=== PATIENT | female | born 1995 | race American Indian/Alaskan Native ===

== ENCOUNTER 2016-10-09 08:38 | Emergency (ER) | payer SELFPAY ==
[2016-10-09 08:53] VITALS: BP 120/75
[2016-10-09 09:19] LABS: Bilirubin,Urine NEG (Negative); Blood,Urine NEG (Negative); Ketones,Urine NEG (Negative); Leukocyte Esterase,Urine NEG (Negative); Mucus,Urine FEW /HPF; Nitrite,Urine NEG (Negative); Protein,Urine <15 mg/dL mg/dL (Negative); Urobilinogen,Urine < 2.0 mg/dL (<2.0)
[2016-10-09 09:42] LABS: Basophils % (Auto) 0.5 % (0.0-1.8); Eosinophils % (Auto) 4.6 % (0.0-4.3); Hematocrit 29.4 % (30.3-42.9); Hemoglobin 8.9 gm/dl (10.1-14.3); Mean Corpuscular HGB Conc 30 % (30-34); Platelet Count 275 K/mm3 (140-440); Red Cell Distribution Width 19.8 % (13.2-15.2); White Blood Count 7.5 K/mm3 (4.5-11.0)
[2016-10-09 09:43] LABS: Mean Corpuscular Hemoglobin 21 pg (28-32); Mean Corpuscular Volume 68 fl (79-97)
[2016-10-09 09:52] LABS: Alanine Aminotransferase 11 units/L (7-56); Albumin 4.2 g/dL (3.9-5); Albumin/Globulin Ratio 1.2 %; Alkaline Phosphatase 49 units/L (35-129); Anion Gap 18 mmol/L; BUN/Creatinine Ratio 17.14; Blood Urea Nitrogen 12 mg/dL (7-17); Calcium 9.3 mg/dL (8.4-10.2); Carbon Dioxide 22 mmol/L (22-30); Chloride 102.1 mmol/L (98-107); Glucose 104 mg/dL (65-100); Lipase 22 units/L (13-60); Potassium 4.1 mmol/L (3.6-5.0); Sodium 138 mmol/L (137-145); Total Protein 7.8 g/dL (6.3-8.2)
== END 2016-10-09 20:00 | disposition left against medical advice (07) ==
LOC: ED 08:38
DX: Z53.21 Procedure and treatment not carried out due to patient leaving prior to being seen by health care provider (principal)
CPT/HCPCS: 36415; 80053; 81001; 81025; 83690; 85025

== ENCOUNTER 2017-04-05 02:45 | Outpatient (CLI) | payer MEDICAID ==
[2017-04-05 02:59] VITALS: BP 119/71
[2017-04-05] MEDS ORDERED: TYLENOL ONE (05:08)
[2017-04-05] MEDS ORDERED: TYLENOL PO ONE (05:10)
== END 2017-04-05 05:15 | disposition home or self-care (01) ==
LOC: TRG 02:45
PROVIDERS: ATTEND Obstetrics & Gynecology
DX: O26.892 Other specified pregnancy related conditions, second trimester (principal); M54.9 Dorsalgia, unspecified; Z3A.23 23 weeks gestation of pregnancy
CPT/HCPCS: 59025

== ENCOUNTER 2017-05-26 12:38 | Outpatient (CLI) | payer MEDICAID ==
[2017-05-26 13:00] VITALS: BP 122/64
[2017-05-26] MEDS ORDERED: LACTATED RINGERS 1,000 ML ONE (15:00)
[2017-05-26] MEDS ORDERED: BRETHINE ONE (16:25)
[2017-05-26] MEDS ORDERED: LACTATED RINGERS 500 ML IV ONE (17:00)
[2017-05-26] MEDS ORDERED: BRETHINE IVP ONE (17:00)
[2017-05-26] MEDS ORDERED: CELESTONE SOLUSPAN IM ONE (18:00)
--- NOTE | 2017-05-26 18:41 | Ultrasound Report ---
FINAL REPORT EXAM: US OB > = 14 WEEKS FETUS HISTORY: FFN POSITIVE, FOR LENGTH AND EFW, AND PRESENTATION TECHNIQUE: Standard full obstetrical ultrasound PRIORS: None. FINDINGS: LMP: 10/09/2016 clinical Age: 32 w 5 d US Age (average) = 31 w 3D EFW (BPD,HC,AC,FL) = 1664g +/ - 246g (3lbs. 11oz. +/- 9oz.) LMP EDC 07/16/2017 US EDC 07/25/2017 CI 78.2 (range 74.0 To 83.0) HC/AC 1.14 (range 0.9 cm to 1.17) FL/BPD 77.7 (range 71.5 to 87.5) FL/HC 20.8 (range 16.9 to 23.5) FL/AC 23.8 (range 20.0 to 24.0) Age 2SD Mean W/d d mm BPD 7.9 cm corresponding to estimated age 30 weeks 5 days HC 29.4 cm corresponding to estimated age 32 weeks 3 days AC 25.8 cm corresponding to estimated age 29 weeks 6 days FL 6.1 cm corresponding to estimated age 31 weeks 6 days Presentation: Breech Activity: Monitored Situs: Normal Placental location: Posterior Placental grade: II Cardiac motion: 143 BPM using M-mode doppler Heart (4 CH) : Present Umbilical cord: 3 vessel Bladder: Present Kidneys: Present stomach: Present Diaphragm: Present Spine: Not well visualized due to lie brain and skull: Present with normal anatomy femurs: Present tibia/fibula: Present humerus: Present radius/ulna: Present Cord Insertion: Not visualized due to lie Amniotic Fluid Volume: Adequate LUPIS: 14.5 cm Cervical Length: 4.2 cm IMPRESSION: Single intrauterine viable with an approximate age of 31 weeks 3 days. spine and cord insertion are not well visualized due to lie.
[2017-05-26] MEDS ORDERED: BRETHINE SUB-Q ONE (19:42)
== END 2017-05-26 20:15 | disposition home or self-care (01) ==
LOC: TRG 12:38
PROVIDERS: ATTEND Obstetrics & Gynecology
DX: O32.1XX0 Maternal care for breech presentation, not applicable or unspecified (principal); O47.03 False labor before 37 completed weeks of gestation, third trimester; Z3A.31 31 weeks gestation of pregnancy
CPT/HCPCS: 36415; 59025; 76805; 82731; 87591; 96360; 96361; 96372; J0702; J3105; J7120

== ENCOUNTER 2017-05-27 17:56 | Outpatient (CLI) | payer MEDICAID ==
[2017-05-27] MEDS ORDERED: CELESTONE SOLUSPAN IM ONE (19:00)
== END 2017-05-27 18:21 | disposition home or self-care (01) ==
LOC: TRG 17:56
PROVIDERS: ATTEND Obstetrics & Gynecology
DX: O47.03 False labor before 37 completed weeks of gestation, third trimester (principal); Z3A.32 32 weeks gestation of pregnancy
CPT/HCPCS: 59025; 96372

== ENCOUNTER 2017-07-03 16:46 | Outpatient (CLI) | payer MEDICAID ==
[2017-07-03 17:47] VITALS: BP 118/62
--- NOTE | 2017-07-03 19:29 | Ultrasound Report ---
FINAL REPORT PROCEDURE: US OB BPP WO NON-STRESS TECHNIQUE: Sonographic evaluation for breathing, movement, tone, and amniotic fluid volume was performed. CPT 82999 HISTORY: WELL BEING, HX OF LOW LUPIS COMPARISON: No prior studies are available for comparison. FINDINGS: Amniotic fluid volume: Normal-score 2. At least one vertical pocket > 2 cm or more in vertical axis. breathing: Normal-score 2. movement: Normal-score 2. tone: Normal. Score: 8 of 8. IMPRESSION: Normal biophysical profile score.
--- NOTE | 2017-07-03 19:40 | Ultrasound Report ---
FINAL REPORT PROCEDURE: US OB LIMITED TECHNIQUE: Real-time limited sonographic examination was performed for evaluation of position, heartbeat, fluid volume for each fetus with image documentation (1 or more fetuses). CPT 86666 HISTORY: WELL BEING, HX OF LOW LUPIS COMPARISON: No prior studies are available for comparison. FINDINGS: FETUS IUP: Single living intrauterine . Position: Cephalic. Amniotic fluid volume: 14.0 centimeters Heart rate and rhythm: 151 BPM, Regular . anatomic survey: Not performed. MEASUREMENTS No biometric measurements were obtained. IMPRESSION: Amniotic fluid index measures 14.0 centimeters.
== END 2017-07-03 18:40 | disposition home or self-care (01) ==
LOC: TRG 16:46
PROVIDERS: ATTEND Obstetrics & Gynecology
DX: O47.1 False labor at or after 37 completed weeks of gestation (principal); Z3A.39 39 weeks gestation of pregnancy
CPT/HCPCS: 59025; 76815; 76819

== ENCOUNTER 2017-07-16 08:58 | Inpatient (IN) | payer MEDICAID ==
[2017-07-16] MEDS ORDERED: BRETHINE IVP PRN (10:00)
[2017-07-16] MEDS ORDERED: SUBLIMAZE IV PRN (10:00)
[2017-07-16] MEDS ORDERED: MINERAL OIL PO PRN (10:00)
[2017-07-16] MEDS ORDERED: BRETHINE SUB-Q PRN (10:00)
[2017-07-16] MEDS ORDERED: STADOL IV PRN (10:00)
[2017-07-16] MEDS ORDERED: PITOCin/NS 30 UNIT/500ML 30 UNITS/500 ML BAG IV SCH (10:00)
[2017-07-16] MEDS ORDERED: XYLOCAINE 2% INFILTRATI NR (10:00)
[2017-07-16] MEDS ORDERED: ePHEDrine SULFATE IV PRN ×2 (10:00→16:05)
[2017-07-16] MEDS ORDERED: PITOCin/NS 20 UNIT/1000ML DRIP 20 UNITS/1,000 ML BAG IV SCH ×2 (10:00→19:00)
[2017-07-16 10:48] LABS: Hematocrit 35.6 % (30.3-42.9); Hemoglobin 11.6 gm/dl (10.1-14.3); Mean Corpuscular HGB Conc 33 % (30-34); Mean Corpuscular Hemoglobin 28 pg (28-32); Mean Corpuscular Volume 85 fl (79-97); Platelet Count 202 K/mm3 (140-440); Red Blood Count 4.19 M/mm3 (3.65-5.03)
[2017-07-16 11:19] LABS: Red Cell Distribution Width 32.4 % (13.2-15.2)
[2017-07-16] MEDS: LACTATED RINGERS 1,000 ML IV SCH ×2 (12:24→16:41)
[2017-07-16] MEDS: PITOCin/NS 30 UNIT/500ML 30 UNITS/500 ML BAG IV SCH ×4 (12:24→16:40)
--- NOTE | 2017-07-16 14:21 | History and Physical Report ---
History of Present Illness Date of examination: 07/16/17 Date of admission: 07/16/17 09:00 History of present illness: 21 yo LMP EDC 07/16/18 @ 40 weeks gestation presented with reported SROM meconium fluid at 2300 last night. Arrived this am. First trimester entry into care. limited care 17-32 weeks gestation. 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 Receive 2 units of PRBC this . Seen by MFM for oligohydramnios. Past History Past Medical History: hematologic disorders Past Surgical History: no surgical history Social history: no significant social history - Obstetrical History Expected Date of Delivery: 07/16/17 Actual Gestation: 40 Week(s) 0 Day(s) : 3 Para: 2 Number of Living Children: 2 Medications and Allergies Allergies Allergy/AdvReac Type Severity Reaction Status Date / Time No Known Allergies Allergy Verified 08/31/15 16:59 Home Medications Medication Instructions Recorded Confirmed Last Taken Type Ferrous Sulfate [Feosol 325 MG tab] 1 tab PO BID 07/03/17 07/03/17 07/03/17 01: 40 History Pnv No.95/Ferrous Fum/Folic AC 1 tab PO DAILY 07/03/17 07/03/17 07/03/17 History [ Vitamins Tablet] Active Meds: Active Medications Butorphanol Tartrate (Stadol) 2 mg IV Q2H PRN PRN Reason: Pain , Severe (7-10) Ephedrine Sulfate (Ephedrine Sulfate) 10 mg IV Q2M PRN PRN Reason: Hypotension Fentanyl (Sublimaze) 100 mcg IV Q2H PRN PRN Reason: Labor Pain Lactated Ringer's (Lactated Ringers) 1,000 mls @ 125 mls/hr IV DIRECT VALENTÍN Last Admin: 07/16/17 12:24 Dose: 125 mls/hr Oxytocin/Sodium Chloride (Pitocin/Ns 20 Unit/1000ml Drip) 20 units in 1,000 mls @ 125 mls/hr IV DIRECT VALENTÍN Oxytocin/Sodium Chloride (Pitocin/Ns 30 Unit/500ml) 30 units in 500 mls @ 4 mls /hr IV TITR VALENTÍN; Protocol Last Admin: 07/16/17 14:16 Dose: 8 ml/hr, 8 mls/hr Oxytocin/Sodium Chloride (Pitocin/Ns 30 Unit/500ml) 30 units in 500 mls @ 1 mls /hr IV TITR VALENTÍN; Protocol Lidocaine (Xylocaine 2%) 20 ml INFILTRATI ONCE NR Stop: 07/17/17 09:59 Mineral Oil (Mineral Oil) 30 ml PO QHS PRN PRN Reason: Constipation Terbutaline Sulfate (Brethine) 0.25 mg SUB-Q ONCE PRN PRN Reason: Hyperstimulation/Hypertonicity Terbutaline Sulfate (Brethine) 0.25 mg IVP ONCE PRN PRN Reason: Hyperstimulation/Hypertonicity Review of Systems All systems: negative - Physical Exam Abdomen: Positive: normal appearance, soft Genitourinary (Female): Positive: normal external genitalia, normal perenium - Obstetrical FHR: category 2 Uterine Contraction Monitor Mode: External Cervical Dilatation: 3 Cervical Effacement Percentage: 40 station: 3 Uterine Contraction Pattern: Regular Uterine Tone Measurement Phase: Resting Results Result Diagrams: 07/16/17 10:30 Abnormal lab results 07/16/17 Range/Units 10:30 RDW 32.4 H (13.2-15.2) % All other labs normal. Assessment and Plan A: IUP at 40 weeks Prolonged ROM @ 1700 P: Active akash't Pitocin
[2017-07-16] MEDS ORDERED: POLYCILLIN/NS 2 GM/100 ML 2 GM/100 ML BAG IV SCH (16:00)
[2017-07-16] MEDS ORDERED: NARCAN 2 MG/2 ML IV PRN (16:05)
--- NOTE | 2017-07-16 16:05 | Anesthesia Consultation ---
Anesthesia Consult and Med Hx Date of service: 07/16/17 - Airway Anesthetic Teeth Evaluation: Good ROM Head & Neck: Adequate Mental/Hyoid Distance: Adequate Mallampati Class: Class II Intubation Access Assessment: Probably Good - Pre-Operative Health Status ASA Pre-Surgery Classification: ASA2 Proposed Anesthetic Plan: Epidural, Spinal - Pulmonary Hx Asthma: No COPD: No Hx Pneumonia: No - Cardiovascular System Hx Hypertension: No - Central Nervous System Hx Seizures: No Hx Psychiatric Problems: No - Endocrine Hx Renal Disease: No Hx End Stage Renal Disease: No Hx Liver Disease: No Hx Hypothyroidism: No Hx Hyperthyroidism: No - Hematic Hx Anemia: No Hx Sickle Cell Disease: No - Other Systems Hx Alcohol Use: No Hx Cancer: No
[2017-07-16] MEDS ORDERED: fentaNYL-BUPIV 2 MCG/ML-0.125% 200 MCG/100 ML BAG EPIDURAL SCH (17:00)
[2017-07-16] MEDS ORDERED: ZOFRAN ONE (17:35)
[2017-07-16] MEDS ORDERED: NORCO 5/325 PO PRN (18:16)
[2017-07-16] MEDS ORDERED: PHENERGAN PR PRN (18:16)
[2017-07-16] MEDS ORDERED: TORADOL IV PRN (18:16)
[2017-07-16] MEDS ORDERED: ZOFRAN IV PRN (18:16)
[2017-07-16] MEDS ORDERED: DULCOLAX PR PRN (18:16)
[2017-07-16] MEDS ORDERED: PHENERGAN PO PRN (18:16)
[2017-07-16] MEDS ORDERED: TUCKS PAD TP PRN (18:16)
[2017-07-16] MEDS ORDERED: MILK OF MAGNESIA PO PRN (18:16)
[2017-07-16] MEDS ORDERED: TYLENOL PO PRN (18:16)
[2017-07-16] MEDS ORDERED: LANSINOH TP PRN (18:16)
[2017-07-16] MEDS ORDERED: BENADRYL PO PRN (18:16)
--- NOTE | 2017-07-16 18:16 | Procedure Note ---
OB Delivery Note - Delivery Date of Delivery: 07/16/17 Surgeon: HECTOR GUEVARA Estimated blood loss: 200cc - Vaginal Delivery presentation: vertex Delivery position: OA Delivery induction: none Delivery augmentation: pitocin Delivery monitor: none Route of delivery: Delivery placenta: spontaneous Delivery cord: 3 umbilical vessels Episiotomy: none Delivery laceration: vaginal side wall Delivery repair: vicryl Anesthesia: epidural Delivery comments: Patient was noted to be c/c/+1 and commenced to pushing a viable male in OA presentation at 1756. The shoulders delivered easily. The baby placed on mother abd and nasopharynx and oropharynx. Apgars 8 and 9. weight 6 pounds 6 ounces. The placenta delivered spontaneously. A left labial tear repaired with 3 -0 vicryl. The patient tolerated procedure and laps correct x 2. EBL 200 cc - A at 1 minute: 8 at 5 minutes: 9 Infant Gender: Male
[2017-07-16] MEDS ORDERED: SODIUM CHLORIDE FLUSH SYRINGE 10 ML IV NR (19:00)
[2017-07-16] MEDS: PERCOCET 5/325 PO PRN (21:49)
[2017-07-16] MEDS: COLACE PO SCH (22:00)
[2017-07-17] MEDS: MOTRIN PO SCH ×3 (01:00→19:00)
[2017-07-17 06:46] LABS: Hematocrit 35.2 % (30.3-42.9); Hemoglobin 11.6 gm/dl (10.1-14.3)
[2017-07-17] MEDS: PERCOCET 5/325 PO PRN (07:32)
--- NOTE | 2017-07-17 08:15 | Progress Note ---
Assessment and Plan A/P PPD 1 s/p vss O+ no rhogam indicated 11.6-11.6 d/c home tomorrow Subjective - Subjective Date of service: 07/17/17 Principal diagnosis: Patient reports: appetite normal, voiding normally, pain well controlled, flatus , ambulating normally [place]: doing well Objective - Vital Signs Latest vital signs: Vital Signs Temp Pulse Resp BP Pulse Ox 07/17/17 04:50 98.0 F 74 20 120/57 98 07/17/17 00:58 98.0 F 89 20 112/50 93 07/16/17 21:11 99.2 F 95 H 18 112/56 07/16/17 19:48 97.0 F L 98 H 18 129/65 07/16/17 19:33 18 Intake and Output 07/16/17 07/17/17 07/17/17 23:59 07:59 15:59 Intake Total 546.417 240 Output Total 800 Balance -253.583 240 Intake: IV 546.417 Lactated Ringers 1,000 ml 535.417 @ 125 mls/hr IV DIRECT VALENTÍN Rx#:[id number] PITOCin/NS 30 UNIT/500ML 11 30 units In 500 ml @ 4 mls/hr IV TITR VALENTÍN Rx#: [id number] Oral 240 Output: Urine 800 Void 800 Other: Total, Intake Amount 240 Total, Output Amount 800 # Voids Void 2 # Bowel Movements 0 Estimated Blood Loss 200 - Exam Breasts: Present: normal Cardiovascular: Present: Regular rate, Normal S1 Lungs: Present: Clear to auscultation, Normal air movement Abdomen: Present: normal appearance, soft, normal bowel sounds. Absent: distention, tenderness Vulva: both: normal Uterus: Present: normal, firm, fundal height below umbilicus. Absent: bogginess , tenderness Extremities: Present: normal Deep Tendon Reflex Grade: Normal +2 - Labs Labs: Abnormal lab results 07/16/17 Range/Units 10:30 RDW 32.4 H (13.2-15.2) %
--- NOTE | 2017-07-17 08:16 | Discharge Summary ---
Providers - Providers Date of Admission: 07/16/17 09:00 Date of discharge: 07/18/17 Attending physician: HECTOR GUEVARA MD Primary care physician: HECTOR GUEVARA MD Hospitalization Reason for admission: active labor Delivery: Episiotomy: none Laceration: vaginal side wall Incision: normal Other procedures: none complications: none Discharge diagnosis: IUP at term delivered baby: male Condition at discharge: Good Disposition: [id number] TO HOME OR SELFCARE Plan - Provider Discharge Summary Activity: routine, no sex for 6 weeks, no strenuous exercise Diet: routine Instructions: routine Additional instructions: [] Smoking cessation referral if applicable(refer to patient education folder for contact #) [] Refer to [facility] Booklet Call your doctor immediately for: * Fever > 100.5 * Heavy vaginal bleeding ( >1 pad per hour) * Severe persistent headache * Shortness of breath * Reddened, hot, painful area to leg or breast * Drainage or odor from incision. * Keep incision clean and dry at all times and follow doctor's instructions regarding bathing/showering - Follow up plan Follow up: HECTOR GUEVARA MD [Primary Care Provider] - 08/13/17
[2017-07-17] MEDS: COLACE PO SCH ×2 (11:05→22:01)
[2017-07-17] MEDS: SENOKOT S PO SCH ×2 (11:05→22:01)
[2017-07-17] MEDS: PRENATAL VITAMIN PO SCH (11:06)
[2017-07-17] MEDS ORDERED: M-M-R II VACCINE SUB-Q ONE (18:16)
[2017-07-17] MEDS ORDERED: BOOSTRIX IM ONE (18:16)
[2017-07-18] MEDS: MOTRIN PO SCH ×3 (01:00→13:02)
[2017-07-18] MEDS: SENOKOT S PO SCH (08:58)
[2017-07-18] MEDS: COLACE PO SCH (08:59)
[2017-07-18] MEDS: PRENATAL VITAMIN PO SCH (08:59)
[2017-07-18 17:22] VITALS: BP 105/60
== END 2017-07-18 18:00 | disposition home or self-care (01) | DRG 775 ==
LOC: TRG 08:58 → LD 09:00 → TRG 09:20 → OB 20:40
PROVIDERS: ADMIT Obstetrics & Gynecology; ATTEND Obstetrics & Gynecology
PROC: 10E0XZZ Delivery of Products of Conception, External Approach (ICD-10-PCS; 2017-07-16)
PROC: 3E0R3BZ Introduction of Anesthetic Agent into Spinal Canal, Percutaneous Approach (ICD-10-PCS; 2017-07-16)
PROC: 00HU33Z Insertion of Infusion Device into Spinal Canal, Percutaneous Approach (ICD-10-PCS; 2017-07-16)
PROC: 0UQMXZZ Repair Vulva, External Approach (ICD-10-PCS; 2017-07-16)
PROC: 3E0234Z Introduction of Serum, Toxoid and Vaccine into Muscle, Percutaneous Approach (ICD-10-PCS; principal; 2017-07-17)
DX: O77.0 Labor and delivery complicated by meconium in amniotic fluid (principal); O70.0 First degree perineal laceration during delivery; Z3A.40 40 weeks gestation of pregnancy; Z37.0 Single live birth; Z23 Encounter for immunization; O99.02 Anemia complicating childbirth; D64.9 Anemia, unspecified
CPT/HCPCS: 36415; 85014; 85018; 85027; 86592; 86850; 86900; 86901; 99211; G0463; J0290; J1885; J2405; J2590; J3010; J7120

== ENCOUNTER 2017-07-22 13:39 | Emergency (ER) | payer MEDICAID ==
[2017-07-22 14:25] LABS: Alanine Aminotransferase 24 units/L (7-56); Albumin 3.5 g/dL (3.9-5); BUN/Creatinine Ratio 20; Blood Urea Nitrogen 10 mg/dL (7-17); Calcium 8.9 mg/dL (8.4-10.2); Hemolysis Index 4
[2017-07-22 14:31] LABS: Hematocrit 37.8 % (30.3-42.9); Hemoglobin 12.8 gm/dl (10.1-14.3); Mean Corpuscular HGB Conc 34 % (30-34); Mean Corpuscular Hemoglobin 29 pg (28-32); Mean Corpuscular Volume 86 fl (79-97); Platelet Count 230 K/mm3 (140-440); Red Blood Count 4.41 M/mm3 (3.65-5.03); Red Cell Distribution Width 30.4 % (13.2-15.2)
[2017-07-22 16:00] LABS: Basophils % (Manual) 0 % (0.0-1.8); Total Cells Counted 100
[2017-07-22 16:01] LABS: Anisocytosis 1+
[2017-07-22] MEDS ORDERED: NACL 0.9% 1000 ML 1,000 ML IV ONE (19:09)
--- NOTE | 2017-07-22 19:11 | Emergency Department Report ---
Blank Doc - Documentation Documentation: Patient presents with complaint of abdominal pain. Patient reports history of recent vaginal delivery on July 16. Patient reports that she was told in the past that she had abdominal hernia. Patient reports that over the last couple days she's had increasing abdominal pain with walking. Plan laboratory and radiological evaluation in the ER.
--- NOTE | 2017-07-22 21:30 | Emergency Department Report ---
ED Abdominal Pain HPI - General Chief Complaint: Abdominal Pain Stated Complaint: HERNIA PAIN Time Seen by Provider: 07/22/17 19:08 Source: patient Mode of arrival: Ambulatory Limitations: No Limitations - History of Present Illness Initial Comments: This is a 21 y.o. female that presents with abdominal pain from hernia. History of hernia prior to . She delivered on July 16 and notified INTERNET TECHNOLOGY MANAGER of hernia pain increased post delivery. The INTERNET TECHNOLOGY MANAGER was monitoring hernia during . Reports pain as 8/10 on pain scale and intermittent. Pain is worse with movement. It is a heavy sensation or pull. It is worse with walking or sitting for long periods of time. Denies frequency, urgency, dysuria, nausea/ vomiting, fever, or constipation. -: month(s) (1) Location: periumbilical Radiation: none Migration to: no migration Severity: severe Severity scale (0 -10): 8 Quality: aching, other (pulling sensation) Consistency: intermittent Improves With: nothing Worsens With: movement Associated Symptoms: denies other symptoms Treatments Prior to Arrival: NSAIDs - Related Data Home Medications Medication Instructions Recorded Confirmed Last Taken Ferrous Sulfate [Feosol 325 MG tab] 1 tab PO BID 07/03/17 07/16/17 07/03/17 01: 40 Pnv No.95/Ferrous Fum/Folic AC 1 tab PO DAILY 07/03/17 07/16/17 07/03/17 [ Vitamins Tablet] Previous Rx's Medication Instructions Recorded Last Taken Type Docusate Sodium [Colace] 100 mg PO BID PRN #30 capsule 07/17/17 Unknown Rx HYDROcodone/APAP 5-325 [Renick 1 each PO Q4HR PRN #30 tablet 07/17/17 Unknown Rx 5/325] Ibuprofen [Motrin] 600 mg PO Q8H PRN #30 tablet 07/17/17 Unknown Rx Allergies Allergy/AdvReac Type Severity Reaction Status Date / Time No Known Allergies Allergy Verified 08/31/15 16:59 ED Review of Systems ROS: Stated complaint: HERNIA PAIN Other details as noted in HPI Constitutional: denies: chills, fever Respiratory: denies: cough, shortness of breath, wheezing Cardiovascular: denies: chest pain, palpitations, edema, syncope Gastrointestinal: abdominal pain (umbilical pain, hernia). denies: nausea, diarrhea Genitourinary: denies: urgency, dysuria, discharge ED Past Medical Hx - Past Medical History Hx Hypertension: No Hx Congestive Heart Failure: No Hx Diabetes: No Hx Deep Vein Thrombosis: No Hx Liver Disease: No Hx Renal Disease: No Hx Sickle Cell Disease: No Hx Seizures: No Hx Asthma: No Hx COPD: No Hx Tuberculosis: No Hx HIV: No Additional medical history: Vaginal delivery x 2 - Surgical History Additional Surgical History: denies - Social History Smoking Status: Never Smoker Substance Use Type: None - Medications Home Medications: Home Medications Medication Instructions Recorded Confirmed Last Taken Type Ferrous Sulfate [Feosol 325 MG tab] 1 tab PO BID 07/03/17 07/16/17 07/03/17 01: 40 History Pnv No.95/Ferrous Fum/Folic AC 1 tab PO DAILY 07/03/17 07/16/17 07/03/17 History [ Vitamins Tablet] Docusate Sodium [Colace] 100 mg PO BID PRN #30 capsule 07/17/17 Unknown Rx HYDROcodone/APAP 5-325 [Renick 1 each PO Q4HR PRN #30 tablet 07/17/17 Unknown Rx 5/325] Ibuprofen [Motrin] 600 mg PO Q8H PRN #30 tablet 07/17/17 Unknown Rx ED Physical Exam - General Limitations: No Limitations General appearance: alert, in no apparent distress, obese - Respiratory Respiratory exam: Present: normal lung sounds bilaterally. Absent: respiratory distress - Cardiovascular Cardiovascular Exam: Present: regular rate, normal rhythm, normal heart sounds. Absent: systolic murmur, diastolic murmur, rubs, gallop - GI/Abdominal GI/Abdominal exam: Present: soft, tenderness, normal bowel sounds, hernia ( tender swelling of umbilicus). Absent: guarding, rebound, rigid ED Course Vital Signs 07/22/17 13:44 Temperature 98.7 F Pulse Rate 71 Respiratory 16 Rate Blood Pressure 135/58 O2 Sat by Pulse 97 Oximetry ED Medical Decision Making - Lab Data Result diagrams: 07/22/17 13:53 07/22/17 13:53 - Radiology Data Radiology results: report reviewed CT of abdomen pelvis: A prominent vascular structure in the right middle lobe is suspicious for an underlying vascular malformation. CT chest pre and post contrast is recommended for further evaluation. Hypertrophied uterus is most likely secondary to status. No obvious acute intra-abdominal or pelvic pathology. CT of Chest: A prominent pulmonary vein of right middle lobe is suspicious for an underlying vascular malformation. Postcontrast study is recommended. No acute pulmonary process.. - Medical Decision Making This is a 21 y.o. female with abdominal pain c/o hernia s/p vaginal deliver 07/16. Patient is stable and was examined by me. Vitals stable. Denies chest pain or SOB. CT of abdomen and CT of chest has been obtained and dictated by radiologist. A prominent pulmonary vein of right middle lobe is suspicious for an underlying vascular malformation. Postcontrast study is recommended. No acute pulmonary process. No acute intra-abdominal or pelvic pathology. Obtained CBC, CMP, HCG quant, d-dimer, and UA. Patient does not seem toxic or ill in appearance. No acute signs of distress noted. Patient informed of results. Consulted with Dr. Platt. Patient is asymptomatic and d-dimer elevation possibly from 6 days post . Referral to general surgery and pulmonology. Currently taking ibuprofen 600 mg, docusate, and norco 5-325 mg. Advised to continue using those for pain. Follow up with PCP in 2-[address] of chest in 3 months. Return to ER if SOB or chest pain. Critical care attestation.: If time is entered above; I have spent that time in minutes in the direct care of this critically ill patient, excluding procedure time. ED Disposition Clinical Impression: Umbilical hernia Qualifiers: Obstruction and gangrene presence: without obstruction or gangrene Qualified Code(s): K42.9 - Umbilical hernia without obstruction or gangrene Disposition: TO HOME OR SELFCARE Is pt being admited?: No Does the pt Need Aspirin: No Condition: Stable Instructions: Umbilical Hernia (ED), Abdominal Pain (ED) Additional Instructions: Continue to use ibuprofen or norco for pain. Follow up with general surgery for hernia management. Follow up with pulmonary for repeat CT of chest in 3 months. Follow up with [facility] in 2-3 days to establish Primary Care. Return to ER if shortness of breath/difficulty breathing, chest pain, or swelling to lower legs. Referrals: [facility] [Outside] - 3-5 Days DEMIAN MAGAÑA MD [Staff Physician] - 3-5 Days MONISHA HUFF MD [Staff Physician] - 3-5 Days Time of Disposition: 23:26 Print Language: TAMAZIGHT
--- NOTE | 2017-07-22 21:35 | Cat Scan Report ---
FINAL REPORT PROCEDURE: CT ABDOMEN PELVIS W CON TECHNIQUE: Computerized axial tomography of the abdomen and pelvis was performed after the IV injection of iodinated nonionic contrast. HISTORY: Pain COMPARISON: No prior studies are available for comparison. FINDINGS: Evaluation of the visualized lung bases demonstrate a prominent vascular structure in the inferior right middle lobe. Liver, spleen, and adrenal glands are within normal limits. Bilateral kidneys demonstrate uniform enhancement without hydronephrosis. Urinary bladder is partially filled with normal outlines. Aorta is of normal caliber. There is no free fluid or free air. Gallbladder is unremarkable. Small bowel loops are within normal limits. There is mild degree residual stool. Appendix is normal. Uterus is hypertrophied. Vertebral height is normal. IMPRESSION: A prominent vascular structure in the right middle lobe is suspicious for an underlying vascular malformation. CT chest pre and post contrast is recommended for further evaluation. Hypertrophied uterus is most likely secondary to status. No obvious acute intra-abdominal or pelvic pathology.
[2017-07-22 21:38] LABS: Bilirubin,Urine NEG (Negative); Blood,Urine LG (Negative); Color,Urine Yellow (Yellow); Mucus,Urine FEW /HPF; Protein,Urine <15 mg/dL mg/dL (Negative)
--- NOTE | 2017-07-22 22:22 | Cat Scan Report ---
FINAL REPORT PROCEDURE: CT CHEST WO CON TECHNIQUE: Computerized axial tomography of the chest was performed without contrast material. This study is performed without intravenous contrast and the sensitivity for pathology, including neoplasms, adenopathy, abscess, pulmonary embolism and aortic dissection, is reduced. HISTORY: f/u CT RML vascular structure COMPARISON: No prior studies are available for comparison. TECHNICAL QUALITY: Satisfactory. FINDINGS: Heart and pericardium: Mild cardiomegaly is noted. Thoracic aorta: Normal. Pulmonary vasculature: A prominent pulmonary vein is noted in the right middle lobe.. Lymph nodes: No enlarged thoracic lymph nodes. Lungs: There are no infiltrates or mass lesions.. Pleural space: No effusion, thickening, or pneumothorax. Musculoskeletal structures: No significant abnormality. Upper abdominal structures: No significant abnormality. IMPRESSION: A prominent pulmonary vein of right middle lobe is suspicious for an underlying vascular malformation. Postcontrast study is recommended. No acute pulmonary process..
[2017-07-22 23:45] VITALS: BP 123/67
== END 2017-07-22 23:44 | disposition home or self-care (01) ==
LOC: ED 13:39
DX: K42.9 Umbilical hernia without obstruction or gangrene (principal); R07.9 Chest pain, unspecified
CPT/HCPCS: 36415; 71250; 74177; 80053; 81001; 83690; 84702; 85007; 85025; 85379; 99284; J7030; Q9967

== ENCOUNTER 2017-09-07 23:23 | Emergency (ER) | payer MEDICAID ==
[2017-09-07 23:46] VITALS: BP 117/79
[2017-09-08 01:07] LABS: Hematocrit 39.5 % (30.3-42.9); Hemoglobin 13.2 gm/dl (10.1-14.3); Mean Corpuscular HGB Conc 34 % (30-34); Mean Corpuscular Hemoglobin 31 pg (28-32); Mean Corpuscular Volume 91 fl (79-97); Platelet Count 203 K/mm3 (140-440); Red Blood Count 4.34 M/mm3 (3.65-5.03); Red Cell Distribution Width 14.2 % (13.2-15.2)
[2017-09-08 01:17] LABS: Basophils % (Auto) 0.7 % (0.0-1.8); Eosinophils # (Auto) 0.1 K/mm3 (0.0-0.4); Eosinophils % (Auto) 1.9 % (0.0-4.3); Lymphocytes # (Auto) 1.3 K/mm3 (1.2-5.4); Lymphocytes % (Auto) 20.7 % (13.4-35.0); Monocytes # (Auto) 0.8 K/mm3 (0.0-0.8)
[2017-09-08 01:19] LABS: BUN/Creatinine Ratio 10; Blood Urea Nitrogen 9 mg/dL (7-17); Calcium 8.7 mg/dL (8.4-10.2); Hemolysis Index 9
[2017-09-08] MEDS ORDERED: TYLENOL PO ONE (01:36)
[2017-09-08] MEDS ORDERED: PEPCID PO ONE (01:36)
--- NOTE | 2017-09-08 02:11 | XRay Report ---
FINAL REPORT EXAM: XR CHEST 1V AP HISTORY: chest pain TECHNIQUE: A portable view of the chest was obtained. FINDINGS: The heart size is at the upper limits of normal. The lungs are clear. The lungs are not congested. Pleural fluid is not seen. The bones and soft tissues do not show any acute changes. IMPRESSION: No active chest disease.
[2017-09-08 02:30] LABS: Alanine Aminotransferase 13 units/L (7-56); Albumin 3.9 g/dL (3.9-5); Lipase 26 units/L (13-60)
[2017-09-08 02:40] LABS: Bilirubin,Direct < 0.2 mg/dL (0-0.2)
--- NOTE | 2017-09-08 03:02 | Emergency Department Report ---
HPI - General Chief Complaint: Chest Pain Time Seen by Provider: 09/08/17 01:25 - HPI HPI: Patient is 22-year-old female presents for evaluation of chest pain. The patient reports midsternal chest pain and epigastric pain for the past 4-5 days , mild to moderate in severity, on and off, burning in quality, exacerbated with eating, improved at rest. The patient states that she has a history of GERD, and that her current symptoms have been occurring since conclusion of her 2 months ago. The patient denies fever, neck pain, parasthesias, dyspnea, cough, hemoptysis, palpitations, dizziness, syncope, unilateral leg swelling, calf muscle pain. Patient also denies cocaine or other stimulant use , history of DVT or PE, recent immobilization, or history of cancer. ED Past Medical Hx - Past Medical History Previous Medical History?: Yes Hx Hypertension: No Hx Congestive Heart Failure: No Hx Diabetes: No Hx Deep Vein Thrombosis: No Hx Liver Disease: No Hx Renal Disease: No Hx Sickle Cell Disease: No Hx Seizures: No Hx Asthma: No Hx COPD: No Hx Tuberculosis: No Hx HIV: No Additional medical history: Vaginal delivery x 2 - Surgical History Additional Surgical History: denies - Social History Smoking Status: Never Smoker - Medications Home Medications: Home Medications Medication Instructions Recorded Confirmed Last Taken Type Ferrous Sulfate [Feosol 325 MG tab] 1 tab PO BID 07/03/17 07/16/17 07/03/17 01: 40 History Pnv No.95/Ferrous Fum/Folic AC 1 tab PO DAILY 07/03/17 07/16/17 07/03/17 History [ Vitamins Tablet] Docusate Sodium [Colace] 100 mg PO BID PRN #30 capsule 07/17/17 Unknown Rx HYDROcodone/APAP 5-325 [[place] 1 each PO Q4HR PRN #30 tablet 07/17/17 Unknown Rx 5/325] Ibuprofen [Motrin] 600 mg PO Q8H PRN #30 tablet 07/17/17 Unknown Rx Cyclobenzaprine HCl [Flexeril 5 MG 5 mg PO Q8HR PRN #15 tab 09/08/17 Unknown Rx TAB] Omeprazole Magnesium [PriLOSEC Otc] 20 mg PO QDAY #14 tablet. 09/08/17 Unknown Rx ED Review of Systems ROS: Stated complaint: CHEST PAIN Other details as noted in HPI Constitutional: denies: fever ENT: denies: throat or neck pain Respiratory: denies: cough, shortness of breath Cardiovascular: reports chest pain Endocrine: denies unexplained weight loss or gain Gastrointestinal: reports abdominal pain, nausea Genitourinary: denies: dysuria Musculoskeletal: denies: leg swelling Skin: denies: rash Neurological: denies: headache Hematological/Lymphatic: denies: easy bleeding or easy bruising Psych: denies sadness or hopelessness Physical Exam - Physical Exam Vital Signs: Vital Signs 09/07/17 09/08/17 09/08/17 23:39 00:02 00:50 Temperature 98.4 F 98.4 F Pulse Rate 91 H 87 Respiratory 18 18 16 Rate Blood Pressure 117/79 117/79 O2 Sat by Pulse 97 96 Oximetry Physical Exam: General: well-nourished, well-developed, no acute distress Head: Normocephalic, atraumatic Eyes: normal sclera ENT: Mucous membranes are pink and moist Neck: trachea midline, neck supple, No neck stiffness, no cervical adenopathy Respiratory: Breath sounds equal bilaterally, no wheezing, rales, or rhonchi Cardio: S1 and S2 present, no murmurs, rubs, gallops, capillary refill is brisk Abdomen: Normoactive bowel sounds, soft abdomen, no rigidity, no guarding or rebound tenderness Musc: No pitting edema Skin: No rash Neuro: no facial drooping, normal speech Psych: Normal affect ED Course Vital Signs 09/07/17 09/08/17 09/08/17 23:39 00:02 00:50 Temperature 98.4 F 98.4 F Pulse Rate 91 H 87 Respiratory 18 18 16 Rate Blood Pressure 117/79 117/79 O2 Sat by Pulse 97 96 Oximetry ED Medical Decision Making - Lab Data Result diagrams: 09/08/17 00:51 09/08/17 00:51 - Medical Decision Making The patient was seen and examined by myself. The patient is placed on a machine setter and repairer and continuous pulse ox. On initial evaluation, the patient was found to be in no distress. EKG was negative for findings suggestive of acute cardiac infarct. Labs and imaging are obtained. The patient is given Tylenol and a Tylenol Pepcid for her pain. Chest x-ray is negative for pneumothorax, focal consolidation, pulmonary vascular congestion, pleural effusion, or other obvious acute cardiopulmonary disease process. Lab results were non-concerning including levels of troponin, WBC, hemoglobin, hematocrit, electrolytes, renal function. The patient was reevaluated and reported that their symptoms were markedly improved. As the patient has a VA risk score less than 2, and a well's score less than 2, the patient is at low risk of ACS or pulmonary emboli etiology of their symptoms. The patient is stable for discharge with outpatient follow-up. The patient is given follow-up and return instructions. The patient expressed understanding and agreed with the plan. The patient is discharged in stable condition. Critical care attestation.: If time is entered above; I have spent that time in minutes in the direct care of this critically ill patient, excluding procedure time. ED Disposition Clinical Impression: Acute chest pain, Abdominal pain, acute, epigastric Disposition: DC-01 TO HOME OR SELFCARE Is pt being admited?: No Does the pt Need Aspirin: No Condition: Stable Instructions: Chest Pain (ED), Acute Abdominal Pain (ED) Referrals: PRIMARY CARE, [Primary Care Provider] - 3-5 Days Time of Disposition: 02:58
== END 2017-09-08 03:10 | disposition home or self-care (01) ==
LOC: ED 23:23
DX: R07.89 Other chest pain (principal); R10.13 Epigastric pain; K21.9 Gastro-esophageal reflux disease without esophagitis
CPT/HCPCS: 36415; 71045; 80048; 80074; 83690; 84484; 84703; 85025; 93005; 93010

== ENCOUNTER 2018-05-04 12:03 | Emergency (ER) | payer MEDICAID, OTHER ==
[2018-05-04 12:37] VITALS: BP 108/44
[2018-05-04 13:12] LABS: HCG Qualitative,Urine Positive (Negative)
[2018-05-04 13:17] LABS: Bilirubin,Urine NEG (Negative); Blood,Urine NEG (Negative); Color,Urine Yellow (Yellow); Mucus,Urine FEW /HPF; Protein,Urine <15 mg/dL mg/dL (Negative)
--- NOTE | 2018-05-04 13:31 | Emergency Department Report ---
ED Dysuria HPI - HPI Chief Complaint: Abdominal Pain Stated Complaint: STOMACH PAIN Time Seen by Provider: 05/04/18 13:33 Duration: 3 Days Location of Discomfort: Suprapubic Severity: Mild Symptoms: Dysuria: No, Frequency: No, Suprapubic Pain: No, Flank Pain: No, Fever: No, Hematuria: No, Abdominal Pain: No, Previous UTI's: No Other History: Patient is a 22-year-old -[place] female who comes to the ER today complaining of umbilical hernia pain. She has a known umbilical hernia from her last . Patient states her last menstrual period was 1221. Patient denies being . Vital signs are stable. ED Review of Systems ROS: Stated complaint: STOMACH PAIN Other details as noted in HPI Comment: All other systems reviewed and negative Constitutional: denies: chills ENT: denies: ear pain Respiratory: denies: see HPI Cardiovascular: denies: chest pain Endocrine: denies: excessive sweating Gastrointestinal: denies: nausea Genitourinary: as per HPI, abnormal menses Musculoskeletal: denies: back pain Skin: denies: rash Neurological: denies: weakness Psychiatric: denies: anxiety Hematological/Lymphatic: denies: easy bleeding ED Past Medical Hx - Past Medical History Previous Medical History?: Yes Hx Hypertension: No Hx Congestive Heart Failure: No Hx Diabetes: No Hx Deep Vein Thrombosis: No Hx Liver Disease: No Hx Renal Disease: No Hx Sickle Cell Disease: No Hx Seizures: No Hx Asthma: No Hx COPD: No Hx Tuberculosis: No Hx HIV: No Additional medical history: umbilical hernia - Surgical History Past Surgical History?: No Additional Surgical History: denies - Social History Smoking Status: Never Smoker Substance Use Type: None - Medications Home Medications: Home Medications Medication Instructions Recorded Confirmed Last Taken Type Ferrous Sulfate [Feosol 325 MG tab] 1 tab PO BID 07/03/17 07/16/17 07/03/17 01:40 History Pnv No.95/Ferrous Fum/Folic AC 1 tab PO DAILY 07/03/17 07/16/17 07/03/17 History [ Vitamins Tablet] Docusate Sodium [Colace] 100 mg PO BID PRN #30 capsule 07/17/17 Unknown Rx HYDROcodone/APAP 5-325 [[place] 1 each PO Q4HR PRN #30 tablet 07/17/17 Unknown Rx 5/325] Ibuprofen [Motrin] 600 mg PO Q8H PRN #30 tablet 07/17/17 Unknown Rx Cyclobenzaprine HCl [Flexeril 5 MG 5 mg PO Q8HR PRN #15 tab 09/08/17 Unknown Rx TAB] Omeprazole Magnesium [PriLOSEC Otc] 20 mg PO QDAY #14 tablet. 09/08/17 Unknown Rx Dysuria Exam - Exam General: Vital signs noted. No distress. Alert and acting appropriately. Exam: Yes Moist Mucous Membranes, No CVA Tenderness, No Abdominal Tenderness, No Rigidity or Guarding Labs: Lab Results 05/04/18 Range/Units 12:53 Urine Color Yellow (Yellow) Urine Turbidity Clear (Clear) Urine pH 6.0 (5.0-7.0) Ur Specific [place] 1.026 (1.003-1.030) Urine Protein <15 mg/dl (Negative) mg/dL Urine Glucose (UA) Neg (Negative) mg/dL Urine Ketones Neg (Negative) mg/dL Urine Blood Neg (Negative) Urine Nitrite Neg (Negative) Ur Reducing Substances Not Reportable Urine Bilirubin Neg (Negative) Urine Ictotest Not Reportable Urine Urobilinogen 4.0 (<2.0) mg/dL Ur Leukocyte Esterase Neg (Negative) Urine WBC (Auto) 3.0 (0.0-6.0) /HPF Urine RBC (Auto) 3.0 (0.0-6.0) /HPF U Epithel Cells (Auto) 4.0 (0-13.0) /HPF Urine Mucus Few /HPF Urine HCG, Qual Positive A (Negative) ED Course Vital Signs 05/04/18 12:35 Temperature 97.6 F Pulse Rate 67 Respiratory 18 Rate Blood Pressure 108/44 O2 Sat by Pulse 100 Oximetry ED Medical Decision Making - Medical Decision Making Suspect that the patient suspected she was and that why she came to the emergency room. She has an umbilical hernia that is not incarcerated. She's had it for years. Her abdomen is soft and nontender on exam over the umbilical area. She is ambulatory. Nontoxic. Afebrile. Taking by mouth. When told she was she did not seem surprised. 4 para 3. Her RN POOL is Dr. Barahona at [facility]. She denies abdominal pain, dysuria, vaginal discharge or bleeding. - Differential Diagnosis rule out Critical care attestation.: If time is entered above; I have spent that time in minutes in the direct care of this critically ill patient, excluding procedure time. ED Disposition Clinical Impression: Disposition: DC- TO HOME OR SELFCARE Is pt being admited?: No Does the pt Need Aspirin: No Condition: Stable Instructions: (ED) Additional Instructions: FOLLOW UP WITH OBGYN WAYNE TYLENOL FOR PAIN Referrals: TRAM MARTINEZ CNM [Staff Physician] - 3-5 Days ÁNGEL TYSON MD [Staff Physician] - 3-5 Days Time of Disposition: 13:30
== END 2018-05-04 14:22 | disposition home or self-care (01) ==
LOC: ED 12:03
DX: K42.9 Umbilical hernia without obstruction or gangrene (principal)
CPT/HCPCS: 81001; 81025; 99283

== ENCOUNTER 2019-03-02 17:37 | Outpatient (CLI) | payer OTHER ==
[2019-03-02 18:28] VITALS: BP 93/54
[2019-03-02 19:06] LABS: Bilirubin,Urine NEG (Negative); Blood,Urine NEG (Negative); Color,Urine Yellow (Yellow); Mucus,Urine FEW /HPF; Protein,Urine <15 mg/dL mg/dL (Negative)
[2019-03-02] MEDS ORDERED: LACTATED RINGERS 500 ML IV ONE (19:47)
--- NOTE | 2019-03-02 21:55 | Ultrasound Report ---
US OB limited, US OB BPP wo non-stress INDICATION / CLINICAL INFORMATION: r/o abruption. COMPARISON: None available. FINDINGS: A viable single intrauterine gestation is demonstrated in the cephalic presentation. The grade 1 placenta is posterior and on the maternal right side without demonstrated evidence of abr uption. The LUPIS is 12. The fetus scored 8 of 8 on the biophysical profile. IMPRESSION: 1. No evidence of placental abruption. Signer Name: Catracho Maravilla MD Signed: 03/02/2019 9:51 PM Workstation Name: [id number]
== END 2019-03-02 20:22 | disposition home or self-care (01) ==
LOC: TRG 17:37
PROVIDERS: ATTEND Obstetrics & Gynecology
DX: O47.02 False labor before 37 completed weeks of gestation, second trimester (principal); Z3A.26 26 weeks gestation of pregnancy
CPT/HCPCS: 59025; 76815; 76819; 81001

== ENCOUNTER 2019-04-24 15:32 | Observation (INO) | payer OTHER ==
[2019-04-24 16:37] LABS: Mean Corpuscular HGB Conc 30 % (30-34); Platelet Count 367 K/mm3 (140-440); Red Blood Count 3.08 M/mm3 (3.65-5.03)
[2019-04-24 16:40] LABS: Hematocrit 18.8 % (30.3-42.9); Hemoglobin 5.6 gm/dl (10.1-14.3); Mean Corpuscular Volume 61 fl (79-97); Red Cell Distribution Width 21.1 % (13.2-15.2)
[2019-04-24] MEDS ORDERED: SODIUM CHLORIDE 0.9% 500 ML 500 ML IV SCH (18:24)
[2019-04-24] MEDS ORDERED: ACETAMINOPHEN 325 MG TAB PO ONE (20:55)
[2019-04-24] MEDS ORDERED: diphenhydrAMINE 25 MG CAP PO ONE (20:57)
[2019-04-25 07:23] LABS: Hematocrit 23.7 % (30.3-42.9); Hemoglobin 7.5 gm/dl (10.1-14.3); Mean Corpuscular HGB Conc 32 % (30-34); Platelet Count 320 K/mm3 (140-440)
[2019-04-25 07:38] LABS: Mean Corpuscular Volume 70 fl (79-97); Red Cell Distribution Width 30.6 % (13.2-15.2)
[2019-04-25 08:32] LABS: Anisocytosis 2+; Band Neutrophils # (Manual) 0.1 K/mm3; Basophils % (Manual) 0 % (0.0-1.8); Hypochromasia 1+; Ovalocytes 1+; Poikilocytosis Few; Target Cells Rare; Total Cells Counted 100
[2019-04-25 08:33] LABS: Large Platelets Rare; Platelet Estimate Consistent w Auto; Tear Drop Cells Rare
[2019-04-25] MEDS ORDERED: SODIUM CHLORIDE 0.9% 500 ML 500 ML IV SCH (09:23)
[2019-04-25 14:31] VITALS: BP 129/62
--- NOTE | 2019-04-25 15:17 | History and Physical Report ---
History of Present Illness Date of examination: 04/25/19 Date of admission: 04/24/19 16:56 Chief complaint: Came in yesterday to receive a blood transfusion. 33wks gestation with Hb 5.4. History of present illness: Came in yesterday to receive a blood transfusion. 33wks gestation with Hb 5.4. Past History Past Medical History: no pertinent history, other (history of nasal bleeds) - Obstetrical History Expected Date of Delivery: 06/08/19 Actual Gestation: 33 Week(s) 5 Day(s) : 5 Medications and Allergies Allergies Allergy/AdvReac Type Severity Reaction Status Date / Time No Known Allergies Allergy Verified 05/04/18 12:34 Home Medications Medication Instructions Recorded Confirmed Last Taken Type Ferrous Sulfate [Feosol 325 MG tab] 1 tab PO BID 07/03/17 07/16/17 07/03/17 01:40 History Pnv No.95/Ferrous Fum/Folic AC 1 tab PO DAILY 07/03/17 07/16/17 07/03/17 History [ Vitamins Tablet] Docusate Sodium [Colace] 100 mg PO BID PRN #30 capsule 07/17/17 Unknown Rx HYDROcodone/APAP 5-325 [[place] 1 each PO Q4HR PRN #30 tablet 07/17/17 Unknown Rx 5/325] Ibuprofen [Motrin] 600 mg PO Q8H PRN #30 tablet 07/17/17 Unknown Rx Cyclobenzaprine HCl [Flexeril 5 MG 5 mg PO Q8HR PRN #15 tab 09/08/17 Unknown Rx TAB] Omeprazole Magnesium [PriLOSEC Otc] 20 mg PO QDAY #14 tablet. 09/08/17 Unknown Rx Active Meds: Active Medications Sodium Chloride (Nacl 0.9% 500 Ml) 500 mls @ 0 mls/hr IV ONCE VALENTÍN Last Admin: 04/24/19 21:14 Dose: 50 mls/hr Documented by: Sodium Chloride (Nacl 0.9% 500 Ml) 500 mls @ 0 mls/hr IV ONCE VALENTÍN Review of Systems ROS unobtainable: due to endotracheal tube - Vital Signs Vital signs: Vital Signs Temp Pulse Resp BP Pulse Ox 98.4 F 109 H 17 111/62 99 04/24/19 16:32 04/24/19 16:32 04/24/19 16:32 04/24/19 16:32 04/24/19 16:32 Temp Pulse Resp BP Pulse Ox 98.1 F 95 H 16 129/62 100 04/25/19 12:58 04/25/19 14:34 04/25/19 12:58 04/25/19 14:31 04/25/19 14:34 - Physical Exam Lungs: Positive: Normal air movement Abdomen: Positive: distention. Negative: tenderness - Obstetrical FHR: category 1 Uterine Contraction Pattern: Absent Results Result Diagrams: 04/25/19 07:00 Abnormal lab results 04/24/19 04/24/19 04/25/19 Range/Units 16:00 16:50 07:00 RBC 3.08 L 3.40 L (3.65-5.03) M/mm3 Hgb 5.6 L* 7.5 L (10.1-14.3) gm/dl Hct 18.8 L* 23.7 L (30.3-42.9) % MCV 61 L 70 L (79-97) fl MCH 18 L 22 L (28-32) pg RDW 21.1 H 30.6 H (13.2-15.2) % Seg Neuts % (Manual) 72.0 H (40.0-70.0) % Nucleated RBC % 1.0 H (0.0-0.9) % Crossmatch See Detail All other labs normal. Assessment and Plan - Patient Problems (1) Anemia affecting Current Visit: Yes Status: Acute Plan to address problem: Ordered to be transfused 4 units prbc and to f/u with own doctor upon discharge. Patient urged to seek investigation for chronic nose bleeds.
[2019-04-25 16:18] LABS: Hematocrit 27.8 % (30.3-42.9); Hemoglobin 8.9 gm/dl (10.1-14.3); Mean Corpuscular HGB Conc 32 % (30-34); Platelet Count 326 K/mm3 (140-440); Red Blood Count 3.99 M/mm3 (3.65-5.03)
[2019-04-25 16:19] LABS: Mean Corpuscular Volume 70 fl (79-97); Red Cell Distribution Width 28.3 % (13.2-15.2)
== END 2019-04-25 17:20 | disposition still patient (30) ==
LOC: TRG 15:32 → INTOOBSV 16:56 → LD 16:56
PROVIDERS: ADMIT Obstetrics & Gynecology; ATTEND Obstetrics & Gynecology
DX: O99.013 Anemia complicating pregnancy, third trimester (principal); Z3A.33 33 weeks gestation of pregnancy
CPT/HCPCS: 36415; 36430; 85007; 85025; 85027; 86850; 86900; 86901; 86920; G0378; J7040; P9016

== ENCOUNTER 2019-05-04 23:57 | Outpatient (CLI) | payer OTHER ==
[2019-05-05 01:11] LABS: Bacteria,Urine 3+ /HPF (Negative); Bilirubin,Urine NEG (Negative); Blood,Urine NEG (Negative); Color,Urine Yellow (Yellow); Mucus,Urine FEW /HPF; Protein,Urine <15 mg/dL mg/dL (Negative)
== END 2019-05-05 02:40 | disposition home or self-care (01) ==
LOC: TRG 23:57
PROVIDERS: ATTEND Obstetrics & Gynecology
DX: O26.893 Other specified pregnancy related conditions, third trimester (principal); R10.9 Unspecified abdominal pain; R25.2 Cramp and spasm; M54.5 Low back pain; Z3A.35 35 weeks gestation of pregnancy
CPT/HCPCS: 59025; 81001; 87086

== ENCOUNTER 2019-05-25 07:28 | Outpatient (CLI) | payer OTHER ==
[2019-05-25 09:29] VITALS: BP 124/64
[2019-05-25 09:36] LABS: Hematocrit 29.2 % (30.3-42.9); Hemoglobin 9.3 gm/dl (10.1-14.3)
[2019-05-25] MEDS ORDERED: LACTATED RINGERS 1,000 ML IV SCH (11:00)
== END 2019-05-25 12:12 | disposition home or self-care (01) ==
LOC: TRG 07:28
PROVIDERS: ATTEND Obstetrics & Gynecology
DX: O99.89 Other specified diseases and conditions complicating pregnancy, childbirth and the puerperium (principal); R04.0 Epistaxis; O26.893 Other specified pregnancy related conditions, third trimester; R42 Dizziness and giddiness; O47.1 False labor at or after 37 completed weeks of gestation; Z3A.37 37 weeks gestation of pregnancy
CPT/HCPCS: 36415; 85014; 85018; J7120

== ENCOUNTER 2019-05-31 17:33 | Outpatient (CLI) | payer OTHER ==
[2019-05-31 17:52] VITALS: BP 112/63
[2019-05-31] MEDS ORDERED: LACTATED RINGERS 1,000 ML IV SCH (18:00)
[2019-05-31 18:58] LABS: Bacteria,Urine 1+ /HPF (Negative); Bilirubin,Urine NEG (Negative); Blood,Urine NEG (Negative); Color,Urine Yellow (Yellow); Mucus,Urine FEW /HPF; Protein,Urine <15 mg/dL mg/dL (Negative)
== END 2019-05-31 21:04 | disposition home or self-care (01) ==
LOC: TRG 17:33
PROVIDERS: ATTEND Obstetrics & Gynecology
DX: O42.913 Preterm premature rupture of membranes, unspecified as to length of time between rupture and onset of labor, third trimester (principal); Z3A.38 38 weeks gestation of pregnancy
CPT/HCPCS: 81001; 87086

== ENCOUNTER 2019-06-02 11:22 | Outpatient (CLI) | payer OTHER ==
[2019-06-02 11:39] VITALS: BP 106/68
== END 2019-06-02 12:26 | disposition home or self-care (01) ==
LOC: TRG 11:22
PROVIDERS: ATTEND Obstetrics & Gynecology
DX: O47.1 False labor at or after 37 completed weeks of gestation (principal); Z3A.39 39 weeks gestation of pregnancy
CPT/HCPCS: 59025

== ENCOUNTER → 2021-04-17 | Emergency (ER) | payer OTHER ==
[2021-04-17 12:46] VITALS: BP 140/62
== END ==
LOC: ED 12:41
DX: R06.02 Shortness of breath (principal); Z53.21 Procedure and treatment not carried out due to patient leaving prior to being seen by health care provider